=== PATIENT | male | born 1965 | race Caucasian/White ===

== ENCOUNTER 2018-11-20 22:20 | Emergency (ER) | payer SELFPAY ==
[2018-11-20 22:39] VITALS: BMI 35.7
--- NOTE | 2018-11-21 00:40 | PDOC ---
History of Present Illness - General Chief Complaint: Injury Stated Complaint: LEFT/ANKLE INJURY Time Seen by Provider: 11/20/18 23:39 History Source: Patient Exam Limitations: No Limitations Past History - Past Medical History Allergies/Adverse Reactions: Allergies Allergy/AdvReac Type Severity Reaction Status Date / Time No Known Allergies Allergy Verified 11/20/18 22:36 Home Medications: Ambulatory Orders Amlodipine Besylate [Norvasc -] 10 mg PO DAILY #30 tablet 11/21/18 Oxycodone HCl/Acetaminophen [Percocet 5-325 mg Tablet] 1 tab PO Q4H PRN #12 tablet MDD 6 11/21/18 COPD: No - Suicide/Smoking/Psychosocial Hx Smoking History: Never smoked *Physical Exam - Vital Signs Last Vital Signs Temp Pulse Resp BP Pulse Ox 98.3 F 104 H 18 183/116 H 96 11/20/18 22:36 11/20/18 22:36 11/20/18 22:36 11/20/18 22:36 11/20/18 22:36 - Physical Exam General Appearance: No: Apparent Distress Musculoskeletal: positive: Decreased Range of Motion, Other (+ecchymosis along L lateral malleolus, + L ankle and foot swelling, +pain on movement of L ankle, no deformity of L foot noted) Extremity: negative: Normal Range of Motion Integumentary: positive: Ecchymosis Neurologic: positive: Alert, Normal Mood/Affect Procedures - Splinting Splint Location: Left: Ankle Pre-Proc Neuro Vasc Exam: normal Pre-Made Type: velcro Hand-Made Type: orthoglass Splint Type: Yes: Short Leg Post-Proc Neuro Vasc Exam: normal Pedrito Bandage: yes ED Treatment Course - RADIOLOGY Radiology Studies Ordered: Category Date Time Status ANKLE & FOOT-LEFT* [RAD] Stat Radiology 11/21/18 01:00 Taken - Medications Given in the ED: ED Medications Discontinued Medications Generic Name Dose Route Start Last Admin Trade Name Freq PRN Reason Stop Dose Admin Oxycodone/Acetaminophen 1 combo 11/20/18 23:55 11/21/18 00:28 Percocet 5/325 - PO 11/20/18 23:56 1 combo ONCE ONE Administration Medical Decision Making - Medical Decision Making 53 y/o M hx of HTN (is not on any meds) presents s/p fall yesterday. States he tripped over uneven pavement on sidewalk. Has been using Alleve without relief of pain. Denies numbness R/O fracture Plan: Xray, pain meds Elevated BP - patient asymptomatic; has not seen a doctor in a long time as states he does not like doctors Will give Norvasc and recheck 11/21/18 00:[address] Padilla and no fracture noted Concern for possible grade 3 ankle sprain - placed in short leg splint Given crutches;will refer to ortho Repeat BP 200/133 (checked both arms and very elevated) Patient remains asymptomatic Plan was to get labs and EKG (to assess end organ damage), consider possible admission if necessary However, patient refuses to get further work up Risks include stroke, heart attack, explained to patient. Patient understands and has capacity to make decisions. Is signing out AMA. 11/21/18 02:53 *DC/Admit/Observation/Transfer Diagnosis at time of Disposition: High ankle sprain of left lower extremity Qualifiers: Encounter type: initial encounter Qualified Code(s): S93.432A - Sprain of tibiofibular ligament of left ankle, initial encounter Hypertension Qualifiers: Hypertension type: unspecified Qualified Code(s): I10 - Essential (primary) hypertension - Discharge Dispostion Disposition: AGAINST MEDICAL ADVICE Condition at time of disposition: Stable Decision to Admit order: No - Prescriptions Prescriptions: Amlodipine Besylate [Norvasc -] 10 mg PO DAILY #30 tablet Oxycodone HCl/Acetaminophen [Percocet 5-325 mg Tablet] 1 tab PO Q4H PRN #12 tablet MDD 6 PRN Reason: Pain - Referrals Referrals: Alonso Ceballos MD [Staff Physician] - 2 Days Yessica Javed MD [Staff Physician] - 2 Days - Patient Instructions Printed Discharge Instructions: DI for Ankle Sprain, Essential Hypertension, How to Use Crutches Additional Instructions: Thank you for choosing [facility]. It was a pleasure taking care of you. You may take Motrin 600 mg every 4 hours by mouth as needed for mild to moderate pain. Take Motrin with food. For severe pain, you may take Percocet This medication can make you constipated for which you may take over the counter Senna tablets as needed. This medication can also make you drowsy so please be cautious with driving or performing heavy physical work. Keep leg elevated above level of heart to help decrease swelling You were referred to orthopedic for further evaluation Your blood pressure was really high here You were recommended to stay for further evaluation, but refused to; risks include stroke, heart attack, failure of organs, You were referred to primary care clinic for better management of your blood pressure Return to the Emergency Department for any concerning symptoms. - Post Discharge Activity
[2018-11-21] MEDS ORDERED: amLODIPine BESYLATE 10 MG TABLET (FP) PO ONE (00:52)
[2018-11-21] MEDS ORDERED: amLODIPine BESYLATE 5 MG TABLET (FP) ONE (01:46)
[2018-11-21 03:00] VITALS: BP 200/133; PULSE 97; TEMP 97.4
== END 2018-11-21 03:44 | disposition left against medical advice (07) ==
LOC: JERFT 22:20 → JER 22:20
PROC: 2W3RX1Z Immobilization of Left Lower Leg using Splint (ICD-10-PCS; principal; 2018-11-20)
DX: S93.492A Sprain of other ligament of left ankle, initial encounter (principal); W01.0XXA Fall on same level from slipping, tripping and stumbling without subsequent striking against object, initial encounter; Y93.89 Activity, other specified; Y92.480 Sidewalk as the place of occurrence of the external cause; Y99.8 Other external cause status; I10 Essential (primary) hypertension
CPT/HCPCS: 73610-TC-LT-FY; 73630-TC-LT; 99281-25

== ENCOUNTER 2019-08-10 12:45 | Emergency (ER) | payer SELFPAY ==
[2019-08-10 12:51] VITALS: TEMP 98; BMI 34.9
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
[2019-08-10 13:40] LABS: BASO % 0.6 % (0-2.0); EOS % 2.3 % (0-4.5); HEMATOCRIT 45.4 % (35.4-49); HEMOGLOBIN 15.5 GM/dL (11.7-16.9); LYMPH % 17.5 % (8-40); MCHC 34.1 g/dl (32.0-35.9); MEAN CELL VOLUME 82.2 fl (80-96); MEAN PLT VOLUME 10.2 fl (7.5-11.1); MONO % 5.4 % (3.8-10.2); NEUT % 74.2 % (42.8-82.8); PLATELET COUNT 246 K/MM3 (134-434); RBC 5.52 M/mm3 (4.00-5.60); RDW 13.4 % (11.9-15.9); WHITE BLOOD COUNT 8.6 K/mm3 (4.0-10.0)
[2019-08-10] MEDS ORDERED: amLODIPine BESYLATE 10 MG TABLET (FP) PO ONE (13:46)
[2019-08-10 14:04] LABS: ALBUMIN 3.6 g/dl (3.4-5.0); ALK PHOS 156 U/L (45-117); ANION GAP 6 MMOL/L (8-16); BILIRUBIN,TOTAL 0.6 mg/dL (0.2-1); BLOOD UREA NITROGEN 17.4 mg/dL (7-18); CALCIUM 9.2 mg/dL (8.5-10.1); CHLORIDE 99 mmol/L (98-107); CO2 29 mmol/L (21-32); CREATININE 1.2 mg/dL (0.55-1.3); GLUCOSE,RANDOM 331 mg/dL (74-106); POTASSIUM 5.1 mmol/L (3.5-5.1); SGOT/AST 42 U/L (15-37); SGPT/ALT 52 U/L (13-61); SODIUM 134 mmol/L (136-145); TOT PROT 8.4 g/dl (6.4-8.2)
[2019-08-10] MEDS ORDERED: amLODIPine BESYLATE 5 MG TABLET (FP) ONE (14:29)
[2019-08-10 15:40] VITALS: BP 176/134; PULSE 68
--- NOTE | 2019-08-11 09:39 | EKG ---
Test Reason : Blood Pressure : / mmHG Vent. Rate : 091 BPM Atrial Rate : 091 BPM P-R Int : 172 ms QRS Dur : 110 ms QT Int : 378 ms P-R-T Axes : 042 -42 069 degrees QTc Int : 464 ms NORMAL SINUS RHYTHM LEFT AXIS DEVIATION /LAFB ABNORMAL ECG NO PREVIOUS ECGS AVAILABLE Confirmed by Kenyatta Godfrey ([id number]) on 08/11/2019 9:39:31 AM Referred By: Confirmed By:Kenyatta Godfrey
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
== END 2019-08-10 15:30 | disposition home or self-care (01) ==
LOC: JER 12:45
DX: G51.0 Bell's palsy (principal); I10 Essential (primary) hypertension
CPT/HCPCS: 36415; 71045-TC-FY; 80053; 82550; 82553; 83880; 84484; 85025; 86618; 93005; 93010; 99285-25

== ENCOUNTER 2020-07-22 12:25 | Inpatient (IN) | payer OTHER ==
[2020-07-22] MEDS ORDERED: ATORVASTATIN CA 80 MG TABLET (FP) PO ONE (13:57)
[2020-07-22] MEDS ORDERED: ASPIRIN 325 MG TABLET PO ONE (13:57)
[2020-07-22 14:08] LABS: BASO % 0.6 % (0-2.0); EOS % 1.8 % (0-4.5); HEMATOCRIT 45.8 % (35.4-49); HEMOGLOBIN 15.7 GM/dL (11.7-16.9); LYMPH % 18.1 % (8-40); MCH 28.1 pg (25.7-33.7); MCHC 34.2 g/dl (32.0-35.9); MEAN PLT VOLUME 9.8 fl (7.5-11.1); MONO % 5.7 % (3.8-10.2); NEUT % 73.8 % (42.8-82.8); PLATELET COUNT 251 K/MM3 (134-434); RBC 5.58 M/mm3 (4.00-5.60); RDW 13.8 % (11.9-15.9); WHITE BLOOD COUNT 8.2 K/mm3 (4.0-10.0)
[2020-07-22 14:13] LABS: INR 1.11 (0.83-1.09); PROTHROMBIN TIME (PATIENT) 13.4 SEC (9.7-13.0)
[2020-07-22 14:16] LABS: ACTIVATED PTT 32.3 SECONDS (25.2-36.5)
[2020-07-22 14:25] LABS: CHLORIDE 101 mmol/L (98-107); POTASSIUM 3.7 mmol/L (3.5-5.1); SODIUM 136 mmol/L (136-145)
[2020-07-22 14:27] LABS: CALCIUM 9.6 mg/dL (8.5-10.1)
[2020-07-22 14:28] LABS: ALBUMIN 3.9 g/dl (3.4-5.0); ANION GAP 6 MMOL/L (8-16); BLOOD UREA NITROGEN 14.4 mg/dL (7-18); CO2 29 mmol/L (21-32); GLUCOSE,RANDOM 125 mg/dL (74-106)
[2020-07-22 14:30] LABS: CHOLESTEROL 242 mg/dL (50-200)
[2020-07-22 14:31] LABS: SGOT/AST 24 U/L (15-37); SGPT/ALT 41 U/L (13-61); TRIGLYCERIDES 151 mg/dL (0-150)
[2020-07-22 14:32] LABS: BILIRUBIN,TOTAL 0.6 mg/dL (0.2-1); LDL CHOLESTEROL (ONLY SJRH) 173 mg/dL (5-100); TOT PROT 8.4 g/dl (6.4-8.2)
[2020-07-22 14:33] LABS: ALK PHOS 116 U/L (45-117); HDL CHOLESTEROL 36 mg/dL (40-60)
[2020-07-22] MEDS ORDERED: ASPIRIN 81 MG CHEWABLE TABLETS ONE (14:33)
[2020-07-22] MEDS ORDERED: ATORVASTATIN CA 80 MG TABLET (FP) ONE ×2 (14:33→22:05)
[2020-07-22] MEDS ORDERED: LABETALOL HCL 5 MG/1 ML (100MG/20 ML VIAL) IVPUSH ONE (17:45)
[2020-07-22] MEDS ORDERED: LABETALOL HCL 5 MG/1 ML (200MG/40ML VIAL) IVPB ONE (18:39)
[2020-07-22] MEDS ORDERED: amLODIPine BESYLATE 10 MG TABLET (FP) PO ONE (18:58)
[2020-07-22 19:05] LABS: EPI CELLS 1 /uL (0-25.1); HYALINE CASTS 0 /uL (0-3.1); PH,URINE 7.5 (5.0-8.0); URINE APPEARANCE CLEAR; URINE BACTERIA 141 /uL (0-1359); URINE BILIRUBIN NEGATIVE (NEGATIVE); URINE COLOR YELLOW; URINE GLUCOSE (UA) NEGATIVE (NEGATIVE); URINE KETONE NEGATIVE (NEGATIVE); URINE LEUK ESTERASE NEGATIVE (NEGATIVE); URINE NITRITE NEGATIVE (NEGATIVE); URINE PROTEIN 1+ (NEGATIVE); URINE RBC 1 /uL (0-23.9); URINE UROBILINOGEN 0.2 mg/dL (0.2-1.0); URINE WBC 1 /uL (0-25.8)
[2020-07-22 19:08] LABS: COCAINE, UR NEGATIVE ng/ml (CUTOFF=300)
[2020-07-22 19:09] LABS: METHADONE, UR NEGATIVE ng/ml (CUTOFF=300); OPIATES, URI NEGATIVE ng/ml (CUTOFF=300); PHENCYCLIDINE,URINE NEGATIVE ng/ml (CUTOFF=25)
[2020-07-22 19:17] LABS: URINE AMPHETAMINES NEGATIVE ng/ml (CUTOFF=500); URINE BARBITURATES NEGATIVE ng/ml (CUTOFF=200); URINE BENZODIAZEPINES NEGATIVE ng/ml (CUTOFF=200)
[2020-07-22] MEDS ORDERED: ASPIRIN COATED 81 MG TABLET.EC PO SCH (22:00)
[2020-07-22] MEDS ORDERED: amLODIPine BESYLATE 5 MG TABLET (FP) ONE (22:05)
[2020-07-22] MEDS: ATORVASTATIN CA 80 MG TABLET (FP) PO SCH (22:09)
[2020-07-23 02:04] VITALS: BMI 36.4
[2020-07-23 07:45] LABS: BASO % 0.7 % (0-2.0); EOS % 3.5 % (0-4.5); HEMATOCRIT 46.4 % (35.4-49); HEMOGLOBIN 15.9 GM/dL (11.7-16.9); LYMPH % 15.6 % (8-40); MCH 28.1 pg (25.7-33.7); MCHC 34.2 g/dl (32.0-35.9); MEAN CELL VOLUME 82.3 fl (80-96); MEAN PLT VOLUME 9.8 fl (7.5-11.1); NEUT % 74.2 % (42.8-82.8); PLATELET COUNT 249 K/MM3 (134-434); RBC 5.64 M/mm3 (4.00-5.60); RDW 13.8 % (11.9-15.9); WHITE BLOOD COUNT 8.3 K/mm3 (4.0-10.0)
[2020-07-23 08:03] LABS: POTASSIUM 3.6 mmol/L (3.5-5.1)
[2020-07-23 08:11] LABS: ALBUMIN 3.6 g/dl (3.4-5.0); BLOOD UREA NITROGEN 15.5 mg/dL (7-18); CALCIUM 9.2 mg/dL (8.5-10.1)
[2020-07-23 08:12] LABS: MAGNESIUM 2.4 mg/dL (1.8-2.4)
[2020-07-23 08:13] LABS: BILIRUBIN,TOTAL 0.7 mg/dL (0.2-1); TOT PROT 8.2 g/dl (6.4-8.2)
[2020-07-23] MEDS: amLODIPine BESYLATE 10 MG TABLET (FP) PO SCH ×2 (08:14→10:09)
[2020-07-23 08:15] LABS: PHOSPHOROUS 4.7 mg/dL (2.5-4.9)
[2020-07-23] MEDS: ASPIRIN COATED 81 MG TABLET.EC PO SCH (10:09)
[2020-07-23] MEDS: ENOXAPARIN NA (PORCINE) 40 MG/0.4 ML DISP.SYRIN SQ SCH (10:09)
[2020-07-23] MEDS ORDERED: LISINOPRIL 20 MG TABLET PO SCH (10:30)
[2020-07-23] MEDS ORDERED: LISINOPRIL 20 MG TABLET PO ONE (13:18)
[2020-07-23] MEDS: ACETAMINOPHEN 325 MG TABLET (FP) PO PRN (16:17)
[2020-07-23] MEDS: INSULIN SLIDING SCALE (NOVOLOG) 1 VIAL SQ SCH ×2 (17:12→21:17)
[2020-07-23] MEDS ORDERED: hydrALAZINE HCL 25 MG TABLET (FP) PO ONE (17:47)
[2020-07-23] MEDS: ATORVASTATIN CA 80 MG TABLET (FP) PO SCH (21:13)
[2020-07-24] MEDS: INSULIN SLIDING SCALE (NOVOLOG) 1 VIAL SQ SCH ×4 (06:19→21:03)
[2020-07-24] MEDS ORDERED: LISINOPRIL 20 MG TABLET PO ONE ×2 (06:32→07:00)
[2020-07-24 07:44] LABS: HEMATOCRIT 47.4 % (35.4-49); HEMOGLOBIN 16.2 GM/dL (11.7-16.9); MCH 28.3 pg (25.7-33.7); MCHC 34.2 g/dl (32.0-35.9); MEAN CELL VOLUME 82.6 fl (80-96); MEAN PLT VOLUME 9.8 fl (7.5-11.1); PLATELET COUNT 259 K/MM3 (134-434); RBC 5.74 M/mm3 (4.00-5.60); RDW 13.9 % (11.9-15.9); WHITE BLOOD COUNT 7.9 K/mm3 (4.0-10.0)
[2020-07-24 08:10] LABS: BLOOD UREA NITROGEN 15.5 mg/dL (7-18); CREATININE 1.1 mg/dL (0.55-1.3)
[2020-07-24 08:11] LABS: ALBUMIN 3.5 g/dl (3.4-5.0)
[2020-07-24 08:12] LABS: BILIRUBIN,TOTAL 1.2 mg/dL (0.2-1); TOT PROT 8.1 g/dl (6.4-8.2)
[2020-07-24 08:14] LABS: CALCIUM 9.5 mg/dL (8.5-10.1)
[2020-07-24] MEDS ORDERED: LISINOPRIL 20 MG TABLET PO SCH (10:00)
[2020-07-24] MEDS: ENOXAPARIN NA (PORCINE) 40 MG/0.4 ML DISP.SYRIN SQ SCH (10:27)
[2020-07-24] MEDS: ASPIRIN COATED 81 MG TABLET.EC PO SCH (10:27)
[2020-07-24] MEDS: amLODIPine BESYLATE 10 MG TABLET (FP) PO SCH (10:27)
[2020-07-24] MEDS: HYDROCHLOROTHIAZIDE 25 MG TABLET (FP) PO SCH (15:20)
[2020-07-24] MEDS ORDERED: hydrALAZINE HCL 25 MG TABLET (FP) PO ONE (20:48)
[2020-07-24] MEDS: ATORVASTATIN CA 80 MG TABLET (FP) PO SCH (21:03)
[2020-07-25] MEDS ORDERED: LABETALOL HCL 5 MG/1 ML (100MG/20 ML VIAL) IVPUSH ONE (01:35)
[2020-07-25] MEDS: ACETAMINOPHEN 325 MG TABLET (FP) PO PRN (03:23)
[2020-07-25] MEDS: INSULIN SLIDING SCALE (NOVOLOG) 1 VIAL SQ SCH ×2 (06:09→11:38)
[2020-07-25 07:25] LABS: POTASSIUM 4.2 mmol/L (3.5-5.1)
[2020-07-25 07:26] LABS: CALCIUM 9.5 mg/dL (8.5-10.1)
[2020-07-25 07:27] LABS: BLOOD UREA NITROGEN 18.5 mg/dL (7-18)
[2020-07-25 07:30] LABS: CREATININE 1.2 mg/dL (0.55-1.3)
[2020-07-25 09:13] LABS: HEMATOCRIT 47.5 % (35.4-49); HEMOGLOBIN 16.3 GM/dL (11.7-16.9); MCH 28.5 pg (25.7-33.7); MCHC 34.4 g/dl (32.0-35.9); MEAN CELL VOLUME 82.9 fl (80-96); MEAN PLT VOLUME 9.5 fl (7.5-11.1); PLATELET COUNT 280 K/MM3 (134-434); RBC 5.74 M/mm3 (4.00-5.60); RDW 13.9 % (11.9-15.9); WHITE BLOOD COUNT 9.4 K/mm3 (4.0-10.0)
[2020-07-25] MEDS ORDERED: LISINOPRIL 20 MG TABLET PO SCH (10:00)
[2020-07-25] MEDS: ASPIRIN COATED 81 MG TABLET.EC PO SCH (10:13)
[2020-07-25] MEDS: amLODIPine BESYLATE 10 MG TABLET (FP) PO SCH (10:13)
[2020-07-25] MEDS: HYDROCHLOROTHIAZIDE 25 MG TABLET (FP) PO SCH (10:13)
[2020-07-25] MEDS: ENOXAPARIN NA (PORCINE) 40 MG/0.4 ML DISP.SYRIN SQ SCH (10:13)
[2020-07-25 14:03] VITALS: TEMP 97.9
[2020-07-25 15:05] VITALS: BP 137/99; PULSE 108
== END 2020-07-25 17:31 | disposition home or self-care (01) | DRG 199 ==
LOC: JER 12:25 → JERBED 16:20 → J4S 07-23 01:27
PROVIDERS: ATTEND Internal Medicine
DX: I16.1 Hypertensive emergency (principal); I63.9 Cerebral infarction, unspecified; I10 Essential (primary) hypertension; G51.0 Bell's palsy; E78.5 Hyperlipidemia, unspecified; E11.9 Type 2 diabetes mellitus without complications; E66.9 Obesity, unspecified; Z68.35 Body mass index [BMI] 35.0-35.9, adult; R29.703 NIHSS score 3; G81.92 Hemiplegia, unspecified affecting left dominant side; I16.0 Hypertensive urgency; Z91.14 Patient's other noncompliance with medication regimen; H54.40 Blindness, one eye, unspecified eye
CPT/HCPCS: 36415; 70450-TC; 70551-TC; 71045-TC-FY; 80048; 80053; 80061; 80307; 81003; 82550; 82553; 82962; 83036; 83721; 83735; 84100; 84443; 84484; 85025; 85027; 85610; 85730; 86780; 86850; 86900; 86901; 93005; 93010; 93306-TC; 93880-TC; 97116-GP; 97162-GP; 99291; C9803; U0003

== ENCOUNTER 2021-11-03 04:11 | Day surgery (SDC) | payer OTHER ==
[2021-11-03 08:41] VITALS: BMI 34.4
[2021-11-03 09:45] VITALS: TEMP 98
[2021-11-03 11:24] VITALS: BP 162/106; PULSE 74
== END 2021-11-03 11:08 | disposition home or self-care (01) ==
LOC: JASU-ENDO 04:11
PROVIDERS: ATTEND Internal Medicine Gastroenterology
PROC: 0DJD8ZZ Inspection of Lower Intestinal Tract, Via Natural or Artificial Opening Endoscopic (ICD-10-PCS; principal; 2021-11-03 09:15)
DX: Z12.11 Encounter for screening for malignant neoplasm of colon (principal); K64.8 Other hemorrhoids; K59.00 Constipation, unspecified; I10 Essential (primary) hypertension; E11.9 Type 2 diabetes mellitus without complications; Z86.73 Personal history of transient ischemic attack (TIA), and cerebral infarction without residual deficits
CPT/HCPCS: 82962

== ENCOUNTER 2021-12-21 09:56 | Observation (INO) | payer OTHER ==
[2021-12-21 10:17] VITALS: BMI 33.6
[2021-12-21] MEDS ORDERED: NIFEdipine E.R 60 MG TABLET PO ONE (10:32)
[2021-12-21] MEDS ORDERED: HYDROCHLOROTHIAZIDE 25 MG TABLET (FP) PO ONE (10:33)
[2021-12-21] MEDS ORDERED: LISINOPRIL 20 MG TABLET PO ONE (10:33)
[2021-12-21] MEDS ORDERED: ASPIRIN 325 MG ENTERIC COATED TABLET (FP) PO ONE (10:33)
[2021-12-21] MEDS ORDERED: ASPIRIN 325 MG TABLET ONE (10:36)
[2021-12-21] MEDS ORDERED: LISINOPRIL 20 MG TABLET ONE (10:36)
[2021-12-21] MEDS ORDERED: NIFEdipine E.R 60 MG TABLET ONE (10:36)
[2021-12-21] MEDS ORDERED: HYDROCHLOROTHIAZIDE 25 MG TABLET (FP) ONE (10:36)
[2021-12-21 11:10] LABS: BASO % 0.7 % (0-2.0); EOS % 3.1 % (0-4.5); HEMATOCRIT 39.2 % (35.4-49); HEMOGLOBIN 13.4 GM/dL (11.7-16.9); MCH 27.9 pg (25.7-33.7); MCHC 34.1 g/dl (32.0-35.9); MEAN CELL VOLUME 81.8 fl (80-96); MEAN PLT VOLUME 8.8 fl (7.5-11.1); MONO % 5.6 % (3.8-10.2); NEUT % 72.6 % (42.8-82.8); PLATELET COUNT 247 10^3/uL (134-434); RBC 4.79 M/mm3 (4.00-5.60); RDW 13.6 % (11.9-15.9); WHITE BLOOD COUNT 7.4 K/mm3 (4.0-10.0)
[2021-12-21 11:34] LABS: CALCIUM 9.3 mg/dL (8.5-10.1)
[2021-12-21 11:35] LABS: ALBUMIN 3.6 g/dl (3.4-5.0); BLOOD UREA NITROGEN 18.5 mg/dL (7-18)
[2021-12-21 11:39] LABS: BILIRUBIN,TOTAL 0.4 mg/dL (0.2-1); TOT PROT 7.7 g/dl (6.4-8.2)
[2021-12-21] MEDS ORDERED: NITROGLYCERIN 2% OINTMENT - 1GM PACKET TD ONE ×2 (12:08→12:17)
[2021-12-21] MEDS: ATORVASTATIN CA 80 MG TABLET (FP) PO SCH (21:43)
[2021-12-21] MEDS: ENOXAPARIN NA (PORCINE) 40 MG/0.4 ML DISP.SYRIN SQ SCH (21:44)
[2021-12-21] MEDS: INSULIN SLIDING SCALE (NOVOLOG) 1 VIAL SQ SCH (21:44)
[2021-12-21 23:35] LABS: N-TERMINAL BNP 153.2 pg/ml (5-125)
[2021-12-22] MEDS: INSULIN SLIDING SCALE (NOVOLOG) 1 VIAL SQ SCH ×4 (06:32→21:23)
[2021-12-22 07:07] LABS: BASO % 0.6 % (0-2.0); EOS % 2.7 % (0-4.5); HEMATOCRIT 38.2 % (35.4-49); HEMOGLOBIN 13.1 GM/dL (11.7-16.9); MCH 28.1 pg (25.7-33.7); MCHC 34.3 g/dl (32.0-35.9); MEAN CELL VOLUME 81.7 fl (80-96); MEAN PLT VOLUME 8.7 fl (7.5-11.1); MONO % 6.7 % (3.8-10.2); PLATELET COUNT 251 10^3/uL (134-434); RBC 4.68 M/mm3 (4.00-5.60); RDW 13.8 % (11.9-15.9); WHITE BLOOD COUNT 9.2 K/mm3 (4.0-10.0)
[2021-12-22 07:20] LABS: INR 1.18 (0.83-1.09); PROTHROMBIN TIME (PATIENT) 13.6 SEC (9.7-13.0)
[2021-12-22 07:23] LABS: ACTIVATED PTT 30.7 SECONDS (25.2-36.5)
[2021-12-22 07:35] LABS: ALBUMIN 3.4 g/dl (3.4-5.0)
[2021-12-22 07:36] LABS: BLOOD UREA NITROGEN 22.6 mg/dL (7-18); MAGNESIUM 2.2 mg/dL (1.8-2.4)
[2021-12-22 07:39] LABS: PHOSPHOROUS 3.6 mg/dL (2.5-4.9)
[2021-12-22 07:41] LABS: BILIRUBIN,TOTAL 0.4 mg/dL (0.2-1); TOT PROT 7.4 g/dl (6.4-8.2)
[2021-12-22] MEDS: LISINOPRIL 20 MG TABLET PO SCH (09:50)
[2021-12-22] MEDS: ASPIRIN COATED 81 MG TABLET.EC PO SCH (09:50)
[2021-12-22] MEDS: NIFEdipine E.R 60 MG TABLET PO SCH (09:50)
[2021-12-22] MEDS: ENOXAPARIN NA (PORCINE) 40 MG/0.4 ML DISP.SYRIN SQ SCH (09:51)
[2021-12-22] MEDS: HYDROCHLOROTHIAZIDE 25 MG TABLET (FP) PO SCH (09:51)
[2021-12-22 11:42] LABS: PH,URINE 6.5 (5.0-8.0); URINE APPEARANCE CLEAR; URINE BILIRUBIN NEGATIVE (NEGATIVE); URINE COLOR YELLOW; URINE GLUCOSE (UA) NEGATIVE (NEGATIVE); URINE KETONE NEGATIVE (NEGATIVE); URINE LEUK ESTERASE NEGATIVE (NEGATIVE); URINE NITRITE NEGATIVE (NEGATIVE); URINE PROTEIN TRACE (NEGATIVE)
[2021-12-22 20:54] LABS: BLOOD UREA NITROGEN 23.7 mg/dL (7-18); CALCIUM 8.9 mg/dL (8.5-10.1)
[2021-12-22 20:58] LABS: CREATININE 1.2 mg/dL (0.55-1.3)
[2021-12-22] MEDS: ATORVASTATIN CA 80 MG TABLET (FP) PO SCH (21:20)
[2021-12-23] MEDS: INSULIN SLIDING SCALE (NOVOLOG) 1 VIAL SQ SCH ×2 (06:38→11:40)
[2021-12-23 08:04] LABS: BASO % 0.5 % (0-2.0); HEMATOCRIT 39.9 % (35.4-49); HEMOGLOBIN 13.7 GM/dL (11.7-16.9); LYMPH % 19.9 % (8-40); MCHC 34.5 g/dl (32.0-35.9); MEAN CELL VOLUME 81.3 fl (80-96); MEAN PLT VOLUME 9.2 fl (7.5-11.1); MONO % 6.3 % (3.8-10.2); NEUT % 69.3 % (42.8-82.8); PLATELET COUNT 274 10^3/uL (134-434); RDW 13.8 % (11.9-15.9); WHITE BLOOD COUNT 7.5 K/mm3 (4.0-10.0)
[2021-12-23 08:29] LABS: CHOLESTEROL 108 mg/dL (50-200); TRIGLYCERIDES 105 mg/dL (0-150)
[2021-12-23 08:31] LABS: LDL CHOLESTEROL (ONLY SJRH) 65 mg/dL (5-100)
[2021-12-23 08:33] LABS: HDL CHOLESTEROL 31 mg/dL (40-60)
[2021-12-23] MEDS ORDERED: REGADENOSON 0.4 MG/5 ML PRE-FILLED SYRINGE IVPUSH ONE ×2 (10:00→10:27)
[2021-12-23] MEDS: NIFEdipine E.R 60 MG TABLET PO SCH (11:14)
[2021-12-23] MEDS: HYDROCHLOROTHIAZIDE 25 MG TABLET (FP) PO SCH (11:14)
[2021-12-23] MEDS: ENOXAPARIN NA (PORCINE) 40 MG/0.4 ML DISP.SYRIN SQ SCH (11:14)
[2021-12-23] MEDS: LISINOPRIL 20 MG TABLET PO SCH (11:14)
[2021-12-23] MEDS: ASPIRIN COATED 81 MG TABLET.EC PO SCH (11:14)
[2021-12-23 15:52] VITALS: BP 150/98; PULSE 82; TEMP 98.2
== END 2021-12-23 18:25 | disposition home or self-care (01) ==
LOC: JER 09:56 → JERBED 13:58 → J4W 21:15
PROVIDERS: ADMIT Internal Medicine; ATTEND Internal Medicine
PROC: 3E033GC Introduction of Other Therapeutic Substance into Peripheral Vein, Percutaneous Approach (ICD-10-PCS; principal; 2021-12-21)
DX: R07.9 Chest pain, unspecified (principal); I10 Essential (primary) hypertension; E78.5 Hyperlipidemia, unspecified; E66.8 Other obesity; Z68.33 Body mass index [BMI] 33.0-33.9, adult; Z86.73 Personal history of transient ischemic attack (TIA), and cerebral infarction without residual deficits; H54.40 Blindness, one eye, unspecified eye
CPT/HCPCS: 0241U-QW; 36415; 71045-TC-FY; 78452-TC; 80048; 80053; 80061; 81003; 82962; 83036; 83735; 83880; 84100; 84443; 84484; 85025; 85610; 85730; 93005; 93010; 93017; 93306-TC; 96374; 99285-25; A9502; G0378; J2785

== ENCOUNTER 2022-02-05 14:16 | Emergency (ER) | payer OTHER ==
[2022-02-05 14:27] VITALS: BP 150/91; PULSE 100; RESP 18; TEMP 97.8; BMI 33.5
== END 2022-02-05 15:06 | disposition home or self-care (01) ==
LOC: JER 14:16 → JERFT 14:16
DX: H00.034 Abscess of left upper eyelid (principal); H10.32 Unspecified acute conjunctivitis, left eye
CPT/HCPCS: 99281-25

== ENCOUNTER 2022-02-11 09:25 | Emergency (ER) | payer OTHER ==
[2022-02-11 09:34] VITALS: BP 143/88; PULSE 96; RESP 17; TEMP 97.7; BMI 33.5
[2022-02-11] MEDS ORDERED: TETRACAINE 0.5% OPHTH SOLN 2 ML BOTTLE OS ONE (10:03)
[2022-02-11] MEDS ORDERED: FLUORESCEIN NA 1 EA STRIP OS ONE (10:03)
[2022-02-11] MEDS ORDERED: TETRACAINE 0.5% OPHTH SOLN 2 ML BOTTLE ONE (10:21)
[2022-02-11] MEDS ORDERED: FLUORESCEIN NA 1 EA STRIP ONE (10:21)
[2022-02-11] MEDS ORDERED: MOXIFLOXACIN HCL 0.5% OPHTHALMIC 3 ML BOTTLE OS ONE (11:02)
== END 2022-02-11 11:31 | disposition home or self-care (01) ==
LOC: JER 09:25
DX: H57.12 Ocular pain, left eye (principal); H10.502 Unspecified blepharoconjunctivitis, left eye
CPT/HCPCS: 99283-25

== ENCOUNTER 2024-02-11 23:50 | Emergency (ER) | payer OTHER ==
[2024-02-12 00:02] VITALS: BP 158/95; PULSE 85; RESP 17; TEMP 97.8; BMI 35.2
[2024-02-12] MEDS ORDERED: KETOROLAC TROMETHAMINE 30 MG/1 ML VIAL ONE (00:30)
[2024-02-12] MEDS: KETOROLAC TROMETHAMINE 30 MG/1 ML VIAL IM ONE (00:43)
== END 2024-02-12 02:23 | disposition home or self-care (01) ==
LOC: JER 23:50
PROC: 3E0233Z Introduction of Anti-inflammatory into Muscle, Percutaneous Approach (ICD-10-PCS; principal; 2024-02-12)
DX: S93.402A Sprain of unspecified ligament of left ankle, initial encounter (principal); X50.9XXA Other and unspecified overexertion or strenuous movements or postures, initial encounter; Y93.01 Activity, walking, marching and hiking
CPT/HCPCS: 73610-TC-LT-FY; 99284-25

== ENCOUNTER 2024-10-27 14:14 | Emergency (ER) | payer OTHER ==
[2024-10-27 14:31] VITALS: BP 117/72; PULSE 96; RESP 18; TEMP 98.9; BMI 34.9
[2024-10-27 15:41] LABS: ABSOLUTE IMMATURE GRANULOCYTES 0.02 x10^3/uL (0.0-0.031); BASOPHILS # 0.04 x10^3/uL (0.01-0.08); EOSINOPHIL % 3.3 % (0.8-7.0); EOSINOPHILS # 0.25 x10^3/uL (0.04-0.54); HEMATOCRIT 44.6 % (40.1-51.0); HEMOGLOBIN 14.8 g/dL (13.7-17.5); MCHC 33.2 g/dl (32.3-36.5); MEAN CELL VOLUME 83.1 fl (79.0-92.2); MEAN PLT VOLUME 10.6 fl (9.4-12.4); MONOCYTE # 0.48 x10^3/uL (0.30-0.82); MONOCYTE % 6.3 % (5.3-12.2); PLATELET COUNT 253 x10^3/uL (163-337); RDW 13.8 % (12.2-16.1)
[2024-10-27 15:49] LABS: INR 1.13 (0.83-1.09); PROTHROMBIN TIME (PATIENT) 12.4 SEC (9.7-13.0)
[2024-10-27 15:52] LABS: ACTIVATED PTT 30.7 SECONDS (25.2-36.5)
[2024-10-27 16:06] LABS: POTASSIUM 3.8 mmol/L (3.5-5.1)
[2024-10-27 16:08] LABS: BLOOD UREA NITROGEN 20.1 mg/dL (7-18); CALCIUM 9.8 mg/dL (8.5-10.1)
[2024-10-27 16:10] LABS: ALBUMIN 3.9 g/dl (3.4-5.0)
[2024-10-27 16:12] LABS: CREATININE 1.3 mg/dL (0.55-1.3)
[2024-10-27 16:13] LABS: BILIRUBIN,TOTAL 0.5 mg/dL (0.2-1)
[2024-10-27] MEDS: SODIUM CHLORIDE 0.9% 500 ML INFUS.BAG IV ONE (16:37)
[2024-10-27 17:02] LABS: HCV DIAGNOSTIC IN-HOUSE W/RFLX NON-REACTIVE (NONREACTIVE); HIV INTERPRETATION NEGATIVE (NEGATIVE)
== END 2024-10-27 19:10 | disposition home or self-care (01) ==
LOC: JER 14:14
PROC: 0HC1XZZ Extirpation of Matter from Face Skin, External Approach (ICD-10-PCS; principal; 2024-10-27)
PROC: 3E0337Z Introduction of Electrolytic and Water Balance Substance into Peripheral Vein, Percutaneous Approach (ICD-10-PCS; 2024-10-27)
DX: S01.81XA Laceration without foreign body of other part of head, initial encounter (principal); W01.198A Fall on same level from slipping, tripping and stumbling with subsequent striking against other object, initial encounter
CPT/HCPCS: 12011-25; 36415; 70450-TC; 71046-TC-FY; 72125-TC; 80053; 84484; 85025; 85610; 85730; 86803; 87389; 93005; 93010; 96361; 99285-25